=== PATIENT | female | born 1945 | race Two or more races ===

== ENCOUNTER 2025-01-01 10:52 | Outpatient (CLI) | payer OTHER | END 2025-01-01 10:58 | disposition home or self-care (01) | LOC: SONOGRAMA 10:52 | PROVIDERS: ATTEND Pathology Anatomic Pathology | DX: D34 Benign neoplasm of thyroid gland (principal); E07.89 Other specified disorders of thyroid; E03.8 Other specified hypothyroidism; E04.8 Other specified nontoxic goiter ==